=== PATIENT | male | born 1965 | race Two or more races ===

== ENCOUNTER 2025-01-23 19:30 | Emergency (ER) | payer OTHER ==
[~2025-01-23] VITALS: Ht 167.6 cm; Wt 113.4 kg
[2025-01-23] MEDS ORDERED: METFORMIN HCL500 M3 PO (19:47)
[2025-01-23] MEDS ORDERED: METOPROLOL SUCC25 MG PO (19:48)
[2025-01-23 20:12] LABS: BASO % 0.6 % (0.1-1.2); EOS # 0.23 (0.04-0.54); EOS % 2.6 % (0.7-7.0); HEMATOCRIT 40.9 % (40.1-51.0); HEMOGLOBIN 14.4 g/dL (13.7-17.5); LYMPH # 2.65 (1.18-3.74); LYMPH % 30.2 % (19.3-53.1); MEAN CORPUSCULAR HEMOGLOBIN 31.6 pg (25.6-32.2); MONO # 0.59 (0.24-0.82); MONO % 6.7 % (4.7-12.5); NEUT # 5.23 (1.56-6.13); NEUT % 59.7 % (34.0-71.1); PLATELET COUNT 168 K/uL (163-369); RED BLOOD COUNT 4.56 M/uL (4.63-6.08); RED CELL DISTRIBUTION WIDTH 12.9 % (11.6-14.4)
[2025-01-23 20:34] LABS: ALBUMIN 3.7 gm/dL (3.4-5.0); BILIRUBIN TOTAL 0.42 mg/dL (0.3-1.2); CALCIUM 8.9 mg/dL (8.5-10.1); CREATININE SERUM 0.75 mg/dL (0.70-1.30); GFR 106.23; GLOBULINA 3.4 G/DL (2.4-3.5); POTASSIUM 3.42 mEq/L (3.5-5.1); TOTAL PROTEIN 7.1 gm/dL (6.4-8.2)
[2025-01-23] MEDS ORDERED: KETOROLAC TROMETHAMINE 30 MG VIAL IM STA (21:02)
[2025-01-23] MEDS ORDERED: KETOROLAC TROMETHAMINE 30 MG VIAL ONE (21:13)
== END 2025-01-23 21:27 | disposition home or self-care (01) ==
LOC: ER 19:30
PROVIDERS: General Practice
DX: M94.0 Chondrocostal junction syndrome [Tietze] (principal); Z88.8 Allergy status to other drugs, medicaments and biological substances
CPT/HCPCS: 36415; 96372; 99282; J1885